=== PATIENT | male | born 1960 ===

== ENCOUNTER 2024-10-13 14:31 | Inpatient (IN) | payer OTHER ==
[2024-10-13] MEDS ORDERED: IRON325 M1 PO (16:17)
[2024-10-13 16:18] VITALS: BP 123/85
[2024-10-13] MEDS ORDERED: NATURE'S BLEND F1 MG PO (16:18)
[2024-10-13] MEDS ORDERED: LISINOPRIL20 MG PO (16:19)
[2024-10-13] MEDS ORDERED: MULTI-VITAMIN1 EACH PO (16:21)
[2024-10-13] MEDS ORDERED: OLANZAPINE10 MG PO (16:22)
[2024-10-13] MEDS ORDERED: OLANZAPINE2.5 MG PO (16:24)
[2024-10-13] MEDS ORDERED: OLANZAPINE7.5 M1 PO (16:24)
[2024-10-13] MEDS ORDERED: Magnesium Hydroxide 30 ML UDC PO PRN (16:30)
[2024-10-13] MEDS ORDERED: ACETAMINOPHEN 325 MG TAB PO PRN (16:30)
[2024-10-13] MEDS ORDERED: LORazepam 1 MG TAB PO PRN (16:30)
[2024-10-13] MEDS ORDERED: MG-AL HYDROXIDE/SIMETICONE 30 ML UDC PO PRN (16:30)
[2024-10-13] MEDS ORDERED: hydrOXYzine hydrochloride 50 MG/ML VIAL IM PRN (16:30)
[2024-10-13] MEDS ORDERED: Menthol/Zinc Oxide 4 GM THIN T PRN (16:35)
[2024-10-13 20:00] VITALS: BP 139/124
[2024-10-13] MEDS ORDERED: LISINOPRIL 20 MG TAB PO SCH (21:00)
[2024-10-13] MEDS ORDERED: clonAZEPAM 0.5 MG TAB PO SCH (21:00)
[2024-10-13] MEDS ORDERED: DIVALPROEX SODIUM 125 MG TAB PO SCH (21:00)
[2024-10-13] MEDS ORDERED: OLANZapine 10 MG TAB PO SCH (21:00)
[2024-10-14 06:10] LABS: BASO % 0.4 % (0.0-1.0); EOS # 0.1 10*3/uL (0.0-0.4); HEMATOCRIT 32.6 % (42.0-52.0); MEAN CELL VOLUME 90.3 fl (80.0-94.0); MEAN CORPUSCULAR HGB 29.4 pg (27.0-31.0); MEAN CORPUSCULAR HGB CONC 32.5 g/dl (33.0-37.0); MEAN PLATELET VOLUME 8.8 fl (9.6-12.3); MONO # 0.4 10*3/uL (0.1-1.0); MONO % 8.8 % (3.0-9.0); NEUT # 3.3 10*3/uL (2.3-7.9); NEUT % 65.4 % (47.0-73.0); PLATELET COUNT AUTOMATED 264 10*3/uL (130-400); RED BLOOD COUNT 3.61 10*6/uL (4.50-5.90)
[2024-10-14 06:51] LABS: ALKALINE PHOSPHATASE 122 U/L (46-116); BUN 15 mg/dl (9-23); CHLORIDE 98 mmol/L (98-107); CHOLESTEROL 168 mg/dL (<200); LDL CHOLESTEROL 73 mg/dL (9-159); POTASSIUM 3.9 mmol/L (3.4-5.1); SGPT/ALT 37 U/L (5-49); TOTAL PROTEIN 5.8 gm/dL (6.0-8.0); TRIGLYCERIDES 91 mg/dl (<150); VALPROIC ACID (DEPAKENE) 12.1 ug/ml (50-100)
[2024-10-14 07:58] LABS: VITAMIN D, 25-HYDROXY 31.9 ng/mL (30-100)
[2024-10-14 08:00] VITALS: BP 132/93
[2024-10-14] MEDS ORDERED: FERROUS SULFATE 325 MG TAB PO SCH (09:00)
[2024-10-14] MEDS ORDERED: MULTIVITAMIN 1 TAB TAB PO SCH (09:00)
[2024-10-14] MEDS ORDERED: OLANZapine 7.5 MG TAB PO SCH (09:00)
[2024-10-14] MEDS ORDERED: FOLIC ACID 1 MG TAB PO SCH (10:00)
[2024-10-14] MEDS ORDERED: Nicotine 21 MG PATCH T SCH (10:00)
[2024-10-14 17:02] LABS: BILIRUBIN Negative (Negative); BLOOD Negative (Negative); CLARITY Clear (Clear); COLOR Yellow (Yellow); GLUCOSE Negative (Negative); KETONE Trace (Negative); LEUKO ESTERASE Negative (Negative); NITRITE Negative (Negative); PH 6.5 (4.5-8.0); SPECIFIC GRAVITY 1.025 (1.001-1.030)
[2024-10-14 17:30] LABS: BACTERIA TRACE; RBC 0-2 rbc/hpf (0-2); WBC 0-2 wbc/hpf (0-5)
[2024-10-14 20:00] VITALS: BP 148/98
[2024-10-15 08:10] VITALS: BP 121/88
[2024-10-15] MEDS ORDERED: Cholecalciferol 2,000 UNIT TABLET (50 MCG) PO SCH (09:00)
[2024-10-15 20:00] VITALS: BP 113/78
[2024-10-15] MEDS ORDERED: fluvoxaMINE Maleate 50 MG TAB PO SCH (21:00)
[2024-10-16 08:00] VITALS: BP 112/81
[2024-10-16] MEDS ORDERED: Paliperidone 6 MG TER PO SCH (09:25)
[2024-10-16] MEDS ORDERED: fluvoxaMINE Maleate 50 MG TAB PO SCH ×2 (09:25→21:00)
[2024-10-17 08:00] VITALS: BP 146/82
[2024-10-17 20:56] VITALS: BP 119/69
[2024-10-17] MEDS ORDERED: fluvoxaMINE Maleate 50 MG TAB PO SCH (21:00)
[2024-10-17] MEDS ORDERED: clonAZEPAM 0.5 MG TAB PO SCH (21:00)
[2024-10-18 08:05] VITALS: BP 162/80
[2024-10-18 20:00] VITALS: BP 125/84
[2024-10-19 08:00] VITALS: BP 138/82
[2024-10-19 20:00] VITALS: BP 153/90
[2024-10-20 08:00] VITALS: BP 97/65
[2024-10-20] MEDS ORDERED: fluvoxaMINE Maleate 50 MG TAB PO SCH (09:00)
[2024-10-20 20:00] VITALS: BP 124/80
[2024-10-21 08:00] VITALS: BP 100/59
[2024-10-21] MEDS ORDERED: Ondansetron Hydrochloride 4 MG TAB PO PRN (09:35)
[2024-10-21 10:20] LABS: BUN 18 mg/dl (9-23); CHLORIDE 91 mmol/L (98-107); LIPASE 23 U/L (12-53); POTASSIUM 4.3 mmol/L (3.4-5.1)
[2024-10-21] MEDS ORDERED: SODIUM CHLORIDE 0.9% 1,000 ML IV ONE (12:05)
[2024-10-21 14:00] VITALS: BP 129/90
[2024-10-21 20:00] VITALS: BP 150/93
[2024-10-22 06:43] LABS: BUN 19 mg/dl (9-23); CHLORIDE 91 mmol/L (98-107); POTASSIUM 4.2 mmol/L (3.4-5.1)
[2024-10-22 08:11] VITALS: BP 105/70
[2024-10-22] MEDS ORDERED: Polyethylene Glycol 3350 17 GM PACKET PO SCH (10:25)
[2024-10-22] MEDS ORDERED: BISACODYL 5 MG TAB PO PRN (10:30)
[2024-10-22] MEDS ORDERED: Na Phos, Dibasic/Na Phos, Mo 1 EA BOT R ONE (13:00)
[2024-10-22 20:00] VITALS: BP 106/68
[2024-10-22] MEDS ORDERED: clomiPRAMINE Hydrochloride 25 MG CAP PO SCH (21:00)
[2024-10-23 06:48] LABS: BUN 26 mg/dl (9-23); CHLORIDE 93 mmol/L (98-107)
[2024-10-23 08:00] VITALS: BP 99/60
[2024-10-23] MEDS ORDERED: Polyethylene Glycol 3350 17 GM PACKET PO SCH (09:00)
[2024-10-23 20:00] VITALS: BP 97/83
[2024-10-23] MEDS ORDERED: clomiPRAMINE Hydrochloride 25 MG CAP PO SCH (21:00)
[2024-10-24 08:00] VITALS: BP 108/72
[2024-10-24 20:00] VITALS: BP 98/73
[2024-10-24] MEDS ORDERED: Albuterol Sulf/Ipratropium 3 ML VIAL NEB SCH (20:50)
[2024-10-24] MEDS ORDERED: Paliperidone 6 MG TER PO SCH (21:00)
[2024-10-24] MEDS ORDERED: AZITHROMYCIN 250 MG TAB PO SCH (22:00)
[2024-10-25 07:24] LABS: BASO % 0.1 % (0.0-1.0); MEAN CELL VOLUME 86.5 fl (80.0-94.0); MEAN CORPUSCULAR HGB 28.5 pg (27.0-31.0); MEAN PLATELET VOLUME 9.2 fl (9.6-12.3); MONO # 0.4 10*3/uL (0.1-1.0); MONO % 5.2 % (3.0-9.0); NEUT # 6.1 10*3/uL (2.3-7.9); NEUT % 83.2 % (47.0-73.0); PLATELET COUNT AUTOMATED 236 10*3/uL (130-400); RED BLOOD COUNT 3.47 10*6/uL (4.50-5.90); RED CELL DISTRI WIDTH 13.3 % (0-14.5); WHITE BLOOD COUNT 7.3 10*3/uL (4.8-10.8)
[2024-10-25 07:47] LABS: ALKALINE PHOSPHATASE 122 U/L (46-116); BUN 35 mg/dl (9-23); CHLORIDE 93 mmol/L (98-107); POTASSIUM 3.7 mmol/L (3.4-5.1); SGPT/ALT 39 U/L (5-49); TOTAL PROTEIN 5.8 gm/dL (6.0-8.0)
[2024-10-25 08:13] VITALS: BP 165/53
[2024-10-25] MEDS ORDERED: CEFDINIR 300 MG CAP PO SCH (09:00)
[2024-10-25] MEDS ORDERED: Albuterol Sulf/Ipratropium 3 ML VIAL NEB SCH (14:00)
[2024-10-25 20:00] VITALS: BP 112/89
[2024-10-25] MEDS ORDERED: clomiPRAMINE Hydrochloride 25 MG CAP PO SCH (21:00)
[2024-10-26 08:00] VITALS: BP 88/65
[2024-10-26] MEDS ORDERED: SODIUM CHLORIDE 0.9% 1,000 ML IV ONE (13:25)
[2024-10-26 20:00] VITALS: BP 144/85
[2024-10-27 07:03] LABS: BASO % 0.2 % (0.0-1.0); EOS % 0.7 % (1.0-4.0); MEAN CELL VOLUME 86.3 fl (80.0-94.0); MEAN CORPUSCULAR HGB 28.9 pg (27.0-31.0); MEAN CORPUSCULAR HGB CONC 33.4 g/dl (33.0-37.0); MEAN PLATELET VOLUME 8.8 fl (9.6-12.3); MONO # 0.4 10*3/uL (0.1-1.0); MONO % 9.5 % (3.0-9.0); NEUT # 2.7 10*3/uL (2.3-7.9); NEUT % 65.6 % (47.0-73.0); PLATELET COUNT AUTOMATED 234 10*3/uL (130-400); RED BLOOD COUNT 3.36 10*6/uL (4.50-5.90); RED CELL DISTRI WIDTH 13.4 % (0-14.5); WHITE BLOOD COUNT 4.1 10*3/uL (4.8-10.8)
[2024-10-27 07:23] LABS: BUN 27 mg/dl (9-23); CHLORIDE 100 mmol/L (98-107); POTASSIUM 3.9 mmol/L (3.4-5.1)
[2024-10-27 08:00] VITALS: BP 121/83
[2024-10-27] MEDS ORDERED: ANAFRANIL PO (11:14)
[2024-10-27] MEDS ORDERED: PALIPERIDONE ER6 MG PO (11:14)
[2024-10-27] MEDS ORDERED: VITAMIN D350 MCG PO (11:14)
[2024-10-27] MEDS ORDERED: Albuterol Sulf/Ipratropium 3 ML VIAL NEB SCH (14:00)
== END 2024-10-27 18:40 | DRG 750 ==
LOC: 3N 14:31
PROVIDERS: Counselor Professional; Internal Medicine; Registered Nurse; Student in an Organized Health Care Education/Training Program; ADMIT Psychiatry & Neurology Psychiatry; ATTEND Psychiatry & Neurology Psychiatry
PROC: GZHZZZZ Group Psychotherapy (ICD-10-PCS; principal; 2024-10-14)
PROC: GZ51ZZZ Individual Psychotherapy, Behavioral (ICD-10-PCS; 2024-10-14)
PROC: GZ56ZZZ Individual Psychotherapy, Supportive (ICD-10-PCS; 2024-10-14)
DX: F20.0 Paranoid schizophrenia (principal); D50.9 Iron deficiency anemia, unspecified; J69.0 Pneumonitis due to inhalation of food and vomit; J96.00 Acute respiratory failure, unspecified whether with hypoxia or hypercapnia; J45.909 Unspecified asthma, uncomplicated; I10 Essential (primary) hypertension; R74.01 Elevation of levels of liver transaminase levels; R73.9 Hyperglycemia, unspecified; F17.210 Nicotine dependence, cigarettes, uncomplicated; F42.9 Obsessive-compulsive disorder, unspecified; Z71.6 Tobacco abuse counseling